=== PATIENT | female | born 1990 | race Caucasian/White ===

== ENCOUNTER 2017-07-04 12:08 | Inpatient (IN) | END 2017-07-05 17:40 | disposition home or self-care (01) | DRG 782 ==

== ENCOUNTER 2017-08-13 12:29 | Inpatient (IN) | END 2017-08-14 20:50 | disposition home or self-care (01) | DRG 782 ==

== ENCOUNTER 2017-09-15 09:06 | Outpatient (CLI) | END 2017-09-15 12:30 | disposition home or self-care (01) ==

== ENCOUNTER 2017-09-30 05:30 | Inpatient (IN) | END 2017-10-02 13:25 | disposition home or self-care (01) | DRG 775 ==